=== PATIENT | female | born 1960 | race African-American/Black ===

== ENCOUNTER 2017-01-05 17:35 | Inpatient (IN) | payer MEDICAID ==
[~2017-01-05] VITALS: Ht 157.5 cm; Wt 88.9 kg
[~2017-01-05 17:35] MED LIST: INSU3INS6 SUBCUT; KEPP250 PO; LEVE1000 PO; LEVO500T2 PO; LISI-651 PO; METF500T4 PO; METR70GE2 VG; PANT40TA4 PO; TRIA1CAP6 PO; VENL150C52 PO; VENL150T3 PO
[2017-01-05] MEDS ORDERED: SODIUM CHLORIDE 0.9% 1,000 ML IV ONE (17:48)
[2017-01-05] MEDS ORDERED: LEVETIRACETAM 500 MG in SODIUM CHLORIDE 0.9% 100 ML IV STA (17:48)
[2017-01-05] MEDS ORDERED: LORAZEPAM 2MG/ML CPJ ONE (17:55)
[2017-01-05] MEDS ORDERED: LORAZEPAM 2MG/ML CPJ IV ONE ×2 (18:00)
[2017-01-05] MEDS ORDERED: LEVETIRACETAM 500MG PREMIX 100 ML IV NR (18:00)
[2017-01-05 18:18] LABS: CLARITY URINE CLEAR (CLEAR); COLOR URINE YELLOW (YELLOW); GLUCOSE URINE 3+ (NEGATIVE); KETONES URINE NEGATIVE (NEGATIVE); LEUKOCYTE ESTERASE URINE NEGATIVE (NEGATIVE); NITRITE URINE NEGATIVE (NEGATIVE); OCCULT BLOOD URINE NEGATIVE (NEGATIVE); PH URINE 5.5 (4.5-8.0); PROTEIN URINE NEGATIVE (NEGATIVE); SPECIFIC GRAVITY URINE 1.038 (1.005-1.030); UROBILINOGEN URINE 0.2 E.U./dL (0.2-1.0)
[2017-01-05 18:35] LABS: CHLORIDE 105 mEq/L (98-107)
[2017-01-05 18:36] LABS: INR 1.1; PARTIAL THROMBOPLASTIN TIME 23.5 sec (23.4-31.0); PROTHROMBIN TIME 11.1 sec (9.4-11.6)
[2017-01-05 18:40] LABS: BASOPHILS % 0.6 % (0.0-2.0); EOSINOPHILS % 0.1 % (0.0-5.0); HEMATOCRIT. 40.6 % (36.0-48.0); HEMOGLOBIN. 13.5 g/dL (12.0-16.0); LYMPHOCYTES % 37.4 % (20.0-50.0); MEAN CORPUSCULAR HEMOGLOBIN 30.6 pg (28.0-32.0); MEAN CORPUSCULAR VOLUME 91.9 fL (81.0-99.0); MEAN PLATELET VOLUME 12.7 fl (7.4-10.4); MONOCYTES % 12.3 % (2.0-8.0); NEUTROPHILS % 49.6 % (40.0-76.0); PLATELET 176 x1000/uL (130-400); RED BLOOD CELL COUNT 4.42 mill/uL (4.2-5.4); RED CELL DISTRIBUTION WIDTH 12.8 % (11.6-14.6)
[2017-01-05 18:43] LABS: CARBON DIOXIDE 23 mEq/L (21-32); CREATINE KINASE 47 IU/L (26-192)
[2017-01-05] MEDS ORDERED: INSULIN REGULAR (HUMULIN R) 300UNITS/3ML IV ONE (19:30)
[2017-01-05] MEDS ORDERED: MAGNESIUM 1 G PREMIX 100 ML IV ONE (19:30)
[2017-01-05] MEDS ORDERED: CLONIDINE 0.1MG TABLET PO PRN (20:15)
[2017-01-05] MEDS ORDERED: ACETAMINOPHEN 325MG TABLET PO PRN (20:15)
[2017-01-05] MEDS ORDERED: ENOXAPARIN 40MG/0.4ML SYR SUBCUT SCH (20:15)
[2017-01-05] MEDS ORDERED: IPRATROPIUM/ALBUTEROL 0.5-3(2.5)MG/3ML NEB INH PRN (20:15)
[2017-01-05] MEDS ORDERED: MAGNESIUM/ALUMINUM HYDROXIDE/SIMETHICONE 30ML UDC PO PRN (20:15)
[2017-01-05] MEDS ORDERED: ONDANSETRON HCL 4MG/2ML VIAL IV PRN (20:15)
[2017-01-05 23:00] VITALS: BP 132/72
[2017-01-05] MEDS ORDERED: DEXTROSE 50% WATER 50ML SYRINGE IV PRN (23:30)
[2017-01-05] MEDS: LORAZEPAM 2MG/ML CPJ IV PRN (23:55)
[2017-01-06] VITALS (10 sets, daily range): BP systolic 105–147; BP diastolic 47–84
[2017-01-06] MEDS ORDERED: LEVETIRACETAM 500 MG in SODIUM CHLORIDE 0.9% 100 ML IV SCH ×2
[2017-01-06 00:07] LABS: CREATINE KINASE 42 IU/L (26-192); CREATINE KINASE MB FRACTION < 0.5 ng/mL (0.5-3.6); TROPONIN I < 0.02 ng/mL (0.00-0.04)
[2017-01-06 00:10] LABS: CARBON DIOXIDE 27 mEq/L (21-32); CHLORIDE 107 mEq/L (98-107)
[2017-01-06] MEDS: SODIUM CHLORIDE 0.9% 1,000 ML IV SCH ×3 (00:21→18:05)
[2017-01-06] MEDS: INSULIN DETEMIR UD 100 UNITS/ML SYR SUBCUT SCH ×3 (00:22→23:35)
[2017-01-06 06:42] LABS: HEMATOCRIT. 41.6 % (36.0-48.0); HEMOGLOBIN. 14.1 g/dL (12.0-16.0); MEAN CORPUSCULAR HEMOGLOBIN 31.1 pg (28.0-32.0); MEAN CORPUSCULAR VOLUME 92.1 fL (81.0-99.0); MEAN PLATELET VOLUME 11.9 fl (7.4-10.4); PLATELET 158 x1000/uL (130-400); RED BLOOD CELL COUNT 4.51 mill/uL (4.2-5.4)
[2017-01-06 07:12] LABS: CREATINE KINASE 37 IU/L (26-192); CREATINE KINASE MB FRACTION 0.8 ng/mL (0.5-3.6); TROPONIN I < 0.02 ng/mL (0.00-0.04)
[2017-01-06] MEDS: BLOOD SUGAR DIAGNOSTIC STRIP TEST SCH ×4 (07:37→21:23)
[2017-01-06] MEDS: VENLAFAXINE HCL 37.5MG SR CAPSULE 24HR PO SCH (08:52)
[2017-01-06] MEDS: METFORMIN HCL 500MG TABLET PO SCH (08:52)
[2017-01-06] MEDS: PANTOPRAZOLE 40MG DR TABLET PO SCH (08:52)
[2017-01-06] MEDS: LISINOPRIL 10MG TABLET PO SCH (08:53)
[2017-01-06] MEDS: ENOXAPARIN 30MG/0.3ML SYR SUBCUT SCH ×2 (08:53→21:21)
[2017-01-06] MEDS: INSULIN LISPRO 100 UNITS/ML SUBCUT SCH ×4 (08:54→21:26)
[2017-01-06] MEDS ORDERED: LEVETIRACETAM 500MG PREMIX 100 ML IV SCH (09:00)
[2017-01-06 17:17] LABS: ATYPICAL LYMPHOCYTES 4; PLATELET ESTIMATE NORMAL
[2017-01-06] MEDS: ATORVASTATIN CALCIUM 10MG TABLET PO SCH (21:21)
[2017-01-06] MEDS: LEVETIRACETAM 500MG TABLET PO SCH (21:23)
[2017-01-07] VITALS (12 sets, daily range): BP systolic 109–148; BP diastolic 39–77
[2017-01-07] MEDS: SODIUM CHLORIDE 0.9% 1,000 ML IV SCH ×3 (03:55→22:52)
[2017-01-07] MEDS: PANTOPRAZOLE 40MG DR TABLET PO SCH (06:33)
[2017-01-07 06:46] LABS: *AMPHETAMINES SCREEN URINE NEGATIVE (NEGATIVE); *BARBITURATES SCREEN URINE NEGATIVE (NEGATIVE); *BENZODIAZEPINES SCREEN URINE PRESUMTIVE POSITIVE (NEGATIVE); *COCAINE SCREEN URINE NEGATIVE (NEGATIVE); CANNABINOID URINE SCREEN NEGATIVE (NEGATIVE); METHADONE URINE SCREEN NEGATIVE (NEGATIVE); OPIATES URINE SCREEN NEGATIVE (NEGATIVE); PHENCYCLIDINE URINE SCREEN NEGATIVE (NEGATIVE)
[2017-01-07 06:54] LABS: BASOPHILS % 0.3 % (0.0-2.0); EOSINOPHILS % 0.2 % (0.0-5.0); HEMATOCRIT. 39.4 % (36.0-48.0); HEMOGLOBIN. 13.7 g/dL (12.0-16.0); LYMPHOCYTES % 38.3 % (20.0-50.0); MEAN CORPUSCULAR HEMOGLOBIN 31.5 pg (28.0-32.0); MEAN CORPUSCULAR VOLUME 90.8 fL (81.0-99.0); MEAN PLATELET VOLUME 12.3 fl (7.4-10.4); MONOCYTES % 13.6 % (2.0-8.0); NEUTROPHILS % 47.6 % (40.0-76.0); PLATELET 178 x1000/uL (130-400); RED BLOOD CELL COUNT 4.34 mill/uL (4.2-5.4); RED CELL DISTRIBUTION WIDTH 12.8 % (11.6-14.6)
[2017-01-07 07:17] LABS: CARBON DIOXIDE 25 mEq/L (21-32); CHLORIDE 108 mEq/L (98-107)
[2017-01-07] MEDS: BLOOD SUGAR DIAGNOSTIC STRIP TEST SCH ×4 (07:30→21:31)
[2017-01-07] MEDS: LEVETIRACETAM 500MG TABLET PO SCH ×2 (09:50→21:19)
[2017-01-07] MEDS: VENLAFAXINE HCL 37.5MG SR CAPSULE 24HR PO SCH (09:51)
[2017-01-07] MEDS: METFORMIN HCL 500MG TABLET PO SCH (09:52)
[2017-01-07] MEDS: ENOXAPARIN 30MG/0.3ML SYR SUBCUT SCH ×2 (09:52→21:18)
[2017-01-07] MEDS: LISINOPRIL 10MG TABLET PO SCH (09:52)
[2017-01-07] MEDS: INSULIN DETEMIR UD 100 UNITS/ML SYR SUBCUT SCH ×2 (09:57→21:41)
[2017-01-07] MEDS: INSULIN LISPRO 100 UNITS/ML SUBCUT SCH ×4 (09:58→21:40)
[2017-01-07] MEDS ORDERED: ATOR10TA PO (12:52)
[2017-01-07] MEDS ORDERED: KEPP500 PO (12:52)
[2017-01-07] MEDS ORDERED: LEVVL SUBCUT (12:52)
[2017-01-07] MEDS ORDERED: POTASSIUM CHLORIDE 20MEQ TABLET SR PO NR (13:00)
[2017-01-07] MEDS: LORAZEPAM 2MG/ML CPJ IV PRN ×2 (15:22→21:19)
[2017-01-07] MEDS: ATORVASTATIN CALCIUM 10MG TABLET PO SCH (21:19)
[2017-01-08] VITALS (10 sets, daily range): BP systolic 92–145; BP diastolic 55–93
[2017-01-08] MEDS: BLOOD SUGAR DIAGNOSTIC STRIP TEST SCH ×2 (07:30→12:48)
[2017-01-08] MEDS: INSULIN LISPRO 100 UNITS/ML SUBCUT SCH ×2 (09:22→13:06)
[2017-01-08] MEDS: ENOXAPARIN 30MG/0.3ML SYR SUBCUT SCH (09:24)
[2017-01-08] MEDS: LEVETIRACETAM 500MG TABLET PO SCH (09:24)
[2017-01-08] MEDS: METFORMIN HCL 500MG TABLET PO SCH (09:25)
[2017-01-08] MEDS: VENLAFAXINE HCL 37.5MG SR CAPSULE 24HR PO SCH (09:25)
[2017-01-08] MEDS: LISINOPRIL 10MG TABLET PO SCH (09:25)
[2017-01-08] MEDS: SODIUM CHLORIDE 0.9% 1,000 ML IV SCH (09:26)
[2017-01-08] MEDS: PANTOPRAZOLE 40MG DR TABLET PO SCH (09:26)
[2017-01-08] MEDS: INSULIN DETEMIR UD 100 UNITS/ML SYR SUBCUT SCH (11:20)
[2017-01-08] MEDS: LORAZEPAM 2MG/ML CPJ IV PRN (16:00)
== END 2017-01-08 17:50 | disposition home or self-care (01) | DRG 53 ==
LOC: ER 17:35 → EDBEDREQ 17:56 → EDBEDREQSVC 17:56 → 5EST 18:50 → EDBEDREQTM 18:52 → EDBEDREQ 18:52 → ENRESERV 18:58
PROVIDERS: ADMIT Internal Medicine; ATTEND Internal Medicine
DX: G40.401 Other generalized epilepsy and epileptic syndromes, not intractable, with status epilepticus (principal); J96.00 Acute respiratory failure, unspecified whether with hypoxia or hypercapnia; E13.00 Other specified diabetes mellitus with hyperosmolarity without nonketotic hyperglycemic-hyperosmolar coma (NKHHC); E11.65 Type 2 diabetes mellitus with hyperglycemia; I10 Essential (primary) hypertension; E78.5 Hyperlipidemia, unspecified; F17.200 Nicotine dependence, unspecified, uncomplicated; Z71.6 Tobacco abuse counseling; Z59.0 Homelessness; Z88.0 Allergy status to penicillin; Z88.8 Allergy status to other drugs, medicaments and biological substances; Z88.6 Allergy status to analgesic agent; Z91.012 Allergy to eggs; Z79.899 Other long term (current) drug therapy; Z79.4 Long term (current) use of insulin; Z91.19 Patient's noncompliance with other medical treatment and regimen
CPT/HCPCS: 36415; 70450; 70551; 80048; 80053; 80061; 80305; 81001; 82550; 82553; 82962; 83690; 83735; 84443; 84484; 85025; 85610; 85730; 93005; 93970; 96361; 96374; 99291; G0482; J1650; J1815; J1953; J2060; J3475; J7030; J7050

== ENCOUNTER 2017-10-03 08:43 | Emergency (ER) | payer MEDICARE, MEDICAID ==
[~2017-10-03] VITALS: Ht 162.6 cm; Wt 80.0 kg
[~2017-10-03 08:43] MED LIST changes: +ATOR10TA PO; -INSU3INS6 SUBCUT; -KEPP250 PO; +KEPP500 PO; -LEVE1000 PO; -LEVO500T2 PO; +LEVVL SUBCUT; -METF500T4 PO; +METF500T6 PO; -METR70GE2 VG; -PANT40TA4 PO; -TRIA1CAP6 PO; -VENL150T3 PO
[2017-10-03] MEDS ORDERED: MORPHINE SULFATE 4 MG/ML CPJ (NOT FOR IM USE) IV STA (09:36)
[2017-10-03] MEDS ORDERED: ONDANSETRON HCL 4MG/2ML VIAL IV STA (09:36)
[2017-10-03 09:55] LABS: HEMATOCRIT. 43.4 % (36.0-48.0); HEMOGLOBIN. 14.6 g/dL (12.0-16.0); MEAN CORPUSCULAR HEMOGLOBIN 30.9 pg (28.0-32.0); MEAN CORPUSCULAR VOLUME 91.6 fL (81.0-99.0); MEAN PLATELET VOLUME 11.5 fl (7.4-10.4); PLATELET 221 x1000/uL (130-400); RED BLOOD CELL COUNT 4.73 mill/uL (4.2-5.4); RED CELL DISTRIBUTION WIDTH 12.4 % (11.6-14.6)
[2017-10-03 10:01] LABS: CHLORIDE 103 mEq/L (98-107)
[2017-10-03 10:04] LABS: ETHANOL BLOOD < 10 mg/dL
[2017-10-03 10:35] LABS: NUCLEATED RED BLOOD CELLS 1 /100 WBC
[2017-10-03 10:36] LABS: PLATELET ESTIMATE NORMAL
[2017-10-03 12:25] LABS: CLARITY URINE CLEAR (CLEAR); COLOR URINE YELLOW (YELLOW); KETONES URINE 1+ (NEGATIVE); LEUKOCYTE ESTERASE URINE NEGATIVE (NEGATIVE); NITRITE URINE NEGATIVE (NEGATIVE); OCCULT BLOOD URINE NEGATIVE (NEGATIVE); PROTEIN URINE NEGATIVE (NEGATIVE); SPECIFIC GRAVITY URINE 1.033 (1.005-1.030)
[2017-10-03 13:00] LABS: *AMPHETAMINES SCREEN URINE NEGATIVE (NEGATIVE); *BARBITURATES SCREEN URINE NEGATIVE (NEGATIVE); *BENZODIAZEPINES SCREEN URINE NEGATIVE (NEGATIVE); *COCAINE SCREEN URINE NEGATIVE (NEGATIVE); METHADONE URINE SCREEN NEGATIVE (NEGATIVE); OPIATES URINE SCREEN PRESUMTIVE POSITIVE (NEGATIVE)
[2017-10-03 13:01] LABS: CANNABINOID URINE SCREEN PRESUMTIVE POSITIVE (NEGATIVE); PHENCYCLIDINE URINE SCREEN NEGATIVE (NEGATIVE)
[2017-10-03 14:01] VITALS: BP 116/69
== END 2017-10-03 14:14 | disposition home or self-care (01) ==
LOC: ER 08:44
DX: R51 Headache (principal); G40.909 Epilepsy, unspecified, not intractable, without status epilepticus; E11.9 Type 2 diabetes mellitus without complications; Z59.0 Homelessness; Z88.5 Allergy status to narcotic agent; Z88.0 Allergy status to penicillin; Z88.6 Allergy status to analgesic agent; Z91.012 Allergy to eggs
CPT/HCPCS: 36415; 70450; 80053; 80305; 81003; 85025; 96374; 96375; 99285; G0482; J2270; J2405

== ENCOUNTER 2018-01-08 07:54 | Inpatient (IN) | payer MEDICARE, MEDICAID ==
[~2018-01-08] VITALS: Ht 157.5 cm; Wt 80.7 kg
[~2018-01-08 07:54] MED LIST changes: +METF-414 PO; -METF500T6 PO
[2018-01-08] MEDS ORDERED: SODIUM CHLORIDE 0.9% 1,000 ML IV ONE ×2 (08:25→10:45)
[2018-01-08] MEDS ORDERED: ONDANSETRON HCL 4MG/2ML INJ IV ONE (08:30)
[2018-01-08] MEDS ORDERED: MORPHINE SULFATE 4 MG/ML CPJ (NOT FOR IM USE) IV ONE (08:30)
[2018-01-08] MEDS ORDERED: LEVETIRACETAM 500MG PREMIX 100 ML IV ONE (08:45)
[2018-01-08 08:52] LABS: BASOPHILS % 1.1 % (0.0-2.0); EOSINOPHILS % 0.1 % (0.0-5.0); HEMOGLOBIN. 15.3 g/dL (12.0-16.0); LYMPHOCYTES % 27.2 % (20.0-50.0); MEAN CORPUSCULAR HEMOGLOBIN 31.3 pg (28.0-32.0); MEAN CORPUSCULAR VOLUME 91.8 fL (81.0-99.0); MEAN PLATELET VOLUME 11.6 fl (7.4-10.4); MONOCYTES % 10.3 % (2.0-8.0); NEUTROPHILS % 61.3 % (40.0-76.0); PLATELET 221 x1000/uL (130-400); RED CELL DISTRIBUTION WIDTH 12.3 % (11.6-14.6)
[2018-01-08 09:18] LABS: CHLORIDE 99 mEq/L (98-107); ETHANOL BLOOD < 10 mg/dL
[2018-01-08 09:43] LABS: CLARITY URINE CLEAR (CLEAR); COLOR URINE YELLOW (YELLOW); KETONES URINE 1+ (NEGATIVE); LEUKOCYTE ESTERASE URINE NEGATIVE (NEGATIVE); NITRITE URINE NEGATIVE (NEGATIVE); OCCULT BLOOD URINE NEGATIVE (NEGATIVE); PROTEIN URINE NEGATIVE (NEGATIVE); SPECIFIC GRAVITY URINE 1.039 (1.005-1.030); UROBILINOGEN URINE 0.2 E.U./dL (0.2-1.0)
[2018-01-08 10:15] LABS: PARTIAL THROMBOPLASTIN TIME 24.5 sec (23.4-31.0); PROTHROMBIN TIME 10.5 sec (9.1-11.1)
[2018-01-08 10:17] LABS: *AMPHETAMINES SCREEN URINE NEGATIVE (NEGATIVE); CANNABINOID URINE SCREEN PRESUMTIVE POSITIVE (NEGATIVE)
[2018-01-08 10:18] LABS: *BARBITURATES SCREEN URINE NEGATIVE (NEGATIVE); *BENZODIAZEPINES SCREEN URINE NEGATIVE (NEGATIVE); *COCAINE SCREEN URINE NEGATIVE (NEGATIVE); METHADONE URINE SCREEN NEGATIVE (NEGATIVE); OPIATES URINE SCREEN NEGATIVE (NEGATIVE); PHENCYCLIDINE URINE SCREEN NEGATIVE (NEGATIVE)
[2018-01-08] MEDS ORDERED: INSULIN REGULAR (HUMULIN R) 300UNITS/3ML IV ONE (10:45)
[2018-01-08 16:00] VITALS: BP 115/61
[2018-01-08 16:52] VITALS: BP 115/61
[2018-01-08] MEDS ORDERED: DOCU-138 MT (17:20)
[2018-01-08] MEDS ORDERED: GLIP10TA10 MT (17:20)
[2018-01-08] MEDS ORDERED: SITA100T11 MT (17:20)
[2018-01-08] MEDS ORDERED: OMEP20CA10 MT (17:20)
[2018-01-08] MEDS ORDERED: ACETAMINOPHEN 650MG/20.3ML UDC GT PRN (19:00)
[2018-01-08] MEDS ORDERED: CLONIDINE 0.1MG TABLET PO PRN (19:00)
[2018-01-08] MEDS ORDERED: GUAIFENESIN 200MG/10ML SUGAR FREE UDC PO PRN (19:00)
[2018-01-08] MEDS ORDERED: MAGNESIUM/ALUMINUM HYDROXIDE/SIMETHICONE 30ML UDC PO PRN (19:00)
[2018-01-08] MEDS ORDERED: ONDANSETRON HCL 4MG/2ML INJ IV PRN (19:00)
[2018-01-08] MEDS ORDERED: ACETAMINOPHEN 650MG SUPP PR PRN (19:00)
[2018-01-08] MEDS ORDERED: DOCUSATE SODIUM 100MG CAPSULE PO PRN (19:00)
[2018-01-08] MEDS ORDERED: IPRATROPIUM/ALBUTEROL 0.5-3(2.5)MG/3ML NEB INH PRN (19:00)
[2018-01-08] MEDS ORDERED: ACETAMINOPHEN 325MG TABLET PO PRN (19:00)
[2018-01-08] MEDS ORDERED: HYDROCODONE/ACETAMINOPHEN 5/325MG TABLET PO PRN (19:00)
[2018-01-08] MEDS ORDERED: NA PHOS,M-B/NA PHOS,DI-BA ENEMA 118ML PR PRN (19:00)
[2018-01-08] MEDS ORDERED: DEXTROSE 50% WATER 50ML SYRINGE IV PRN (19:30)
[2018-01-08 20:00] VITALS: BP 119/60
[2018-01-08] MEDS: BLOOD SUGAR DIAGNOSTIC STRIP TEST SCH (21:32)
[2018-01-08] MEDS: INSULIN LISPRO 100 UNITS/ML SUBCUT SCH (21:40)
[2018-01-08] MEDS: HYDROCODONE/ACETAMINOPHEN 10/325MG TABLET PO PRN (21:43)
[2018-01-08] MEDS: ENOXAPARIN 40MG/0.4ML SYR SUBCUT SCH (21:43)
[2018-01-08] MEDS: LEVETIRACETAM 500MG TABLET PO SCH (21:44)
[2018-01-08] MEDS: LORAZEPAM 2MG/ML CPJ IV PRN (21:44)
[2018-01-08] MEDS: SODIUM CHLORIDE 0.9% INJ 3ML FLUSH IVF SCH (21:56)
[2018-01-08] MEDS: VENLAFAXINE HCL 75MG TABLET PO SCH (22:51)
[2018-01-08] MEDS: OMEPRAZOLE 20MG CAPSULE EXTENDED RELEASE PO SCH (22:52)
[2018-01-08] MEDS: DOCUSATE SODIUM 100MG CAPSULE PO SCH (22:52)
[2018-01-08] MEDS: METFORMIN HCL 500MG TABLET PO SCH (22:52)
[2018-01-08] MEDS: LISINOPRIL 10MG TABLET PO SCH (22:52)
[2018-01-08] MEDS: INSULIN GLARGINE UD 100 UNITS/ML SYR SUBCUT SCH (22:53)
[2018-01-08 23:52] LABS: CREATINE KINASE 27 IU/L (26-192); CREATINE KINASE MB FRACTION < 1.0 ng/mL (0.5-3.6)
[2018-01-09] VITALS: BP 102/39
[2018-01-09 00:20] VITALS: BP 113/60
[2018-01-09] MEDS: SODIUM CHLORIDE 0.9% INJ 3ML FLUSH IVF SCH ×3 (06:37→21:43)
[2018-01-09] MEDS: INSULIN LISPRO 100 UNITS/ML SUBCUT SCH ×4 (06:56→21:43)
[2018-01-09] MEDS: BLOOD SUGAR DIAGNOSTIC STRIP TEST SCH ×4 (06:56→21:32)
[2018-01-09 07:52] LABS: BASOPHILS % 0.5 % (0.0-2.0); EOSINOPHILS % 0.1 % (0.0-5.0); HEMATOCRIT. 43.7 % (36.0-48.0); HEMOGLOBIN. 14.5 g/dL (12.0-16.0); LYMPHOCYTES % 33.8 % (20.0-50.0); MEAN CORPUSCULAR HEMOGLOBIN 30.6 pg (28.0-32.0); MEAN CORPUSCULAR VOLUME 92.2 fL (81.0-99.0); MONOCYTES % 9.9 % (2.0-8.0); NEUTROPHILS % 55.7 % (40.0-76.0); PLATELET 220 x1000/uL (130-400); RED BLOOD CELL COUNT 4.74 mill/uL (4.2-5.4); RED CELL DISTRIBUTION WIDTH 12.2 % (11.6-14.6)
[2018-01-09 08:00] VITALS: BP 108/52
[2018-01-09] MEDS: GLIPIZIDE 10MG TABLET PO SCH ×2 (08:50→17:13)
[2018-01-09] MEDS: LEVETIRACETAM 500MG TABLET PO SCH ×3 (08:50→21:42)
[2018-01-09] MEDS: DOCUSATE SODIUM 100MG CAPSULE PO SCH ×2 (08:50→17:13)
[2018-01-09] MEDS: METFORMIN HCL 500MG TABLET PO SCH (08:51)
[2018-01-09] MEDS: OMEPRAZOLE 20MG CAPSULE EXTENDED RELEASE PO SCH (08:51)
[2018-01-09] MEDS: VENLAFAXINE HCL 75MG TABLET PO SCH (08:51)
[2018-01-09] MEDS: LISINOPRIL 10MG TABLET PO SCH (08:52)
[2018-01-09 09:50] LABS: CHLORIDE 105 mEq/L (98-107)
[2018-01-09] MEDS: INSULIN GLARGINE UD 100 UNITS/ML SYR SUBCUT SCH (10:03)
[2018-01-09 10:11] LABS: CREATINE KINASE 26 IU/L (26-192); CREATINE KINASE MB FRACTION < 1.0 ng/mL (0.5-3.6); HDL CHOLESTEROL 73 mg/dL (40-59); LDL CHOLESTEROL 116 mg/dL (5-100)
[2018-01-09] MEDS: HYDROCODONE/ACETAMINOPHEN 10/325MG TABLET PO PRN (11:08)
[2018-01-09 12:00] VITALS: BP 108/68
[2018-01-09] MEDS: LORAZEPAM 2MG/ML CPJ IV PRN (14:41)
[2018-01-09 16:00] VITALS: BP 107/57
[2018-01-09] MEDS: LAMOTRIGINE 25MG TABLET PO SCH (16:44)
[2018-01-09 20:00] VITALS: BP 121/64
[2018-01-09] MEDS: LINAGLIPTIN 5MG TABLET PO SCH (21:42)
[2018-01-09] MEDS: ATORVASTATIN CALCIUM 10MG TABLET PO SCH (21:42)
[2018-01-09] MEDS: ENOXAPARIN 40MG/0.4ML SYR SUBCUT SCH (21:43)
[2018-01-10] VITALS: BP 106/63
[2018-01-10] MEDS: INSULIN GLARGINE UD 100 UNITS/ML SYR SUBCUT SCH ×3 (00:04→20:51)
[2018-01-10 04:00] VITALS: BP 105/62
[2018-01-10] MEDS: SODIUM CHLORIDE 0.9% INJ 3ML FLUSH IVF SCH ×3 (06:26→20:52)
[2018-01-10] MEDS: BLOOD SUGAR DIAGNOSTIC STRIP TEST SCH ×4 (06:27→20:52)
[2018-01-10] MEDS: INSULIN LISPRO 100 UNITS/ML SUBCUT SCH ×4 (07:49→20:51)
[2018-01-10 08:00] VITALS: BP 102/58
[2018-01-10] MEDS: LISINOPRIL 10MG TABLET PO SCH (09:00)
[2018-01-10] MEDS: LEVETIRACETAM 500MG TABLET PO SCH ×2 (09:13→20:52)
[2018-01-10] MEDS: GLIPIZIDE 10MG TABLET PO SCH ×2 (09:13→17:30)
[2018-01-10] MEDS: VENLAFAXINE HCL 75MG TABLET PO SCH (09:14)
[2018-01-10] MEDS: LINAGLIPTIN 5MG TABLET PO SCH (09:14)
[2018-01-10] MEDS: LAMOTRIGINE 25MG TABLET PO SCH (09:14)
[2018-01-10] MEDS: FAMOTIDINE 20MG TABLET PO SCH ×2 (09:14→17:30)
[2018-01-10] MEDS: DOCUSATE SODIUM 100MG CAPSULE PO SCH ×2 (09:14→17:30)
[2018-01-10] MEDS: METFORMIN HCL 500MG TABLET PO SCH (09:18)
[2018-01-10 12:00] VITALS: BP 118/76
[2018-01-10 16:00] VITALS: BP 120/64
[2018-01-10] MEDS: HYDROCODONE/ACETAMINOPHEN 10/325MG TABLET PO PRN (17:30)
[2018-01-10 20:00] VITALS: BP 130/66
[2018-01-10] MEDS: ATORVASTATIN CALCIUM 10MG TABLET PO SCH (20:52)
[2018-01-10] MEDS: ENOXAPARIN 40MG/0.4ML SYR SUBCUT SCH (20:53)
[2018-01-11] VITALS: BP 96/50
[2018-01-11 04:00] VITALS: BP 100/61
[2018-01-11] MEDS: SODIUM CHLORIDE 0.9% INJ 3ML FLUSH IVF SCH ×3 (06:00→22:00)
[2018-01-11] MEDS: BLOOD SUGAR DIAGNOSTIC STRIP TEST SCH ×4 (07:00→21:00)
[2018-01-11 08:10] VITALS: BP 99/59
[2018-01-11] MEDS ORDERED: GADOBENATE DIMEGLUMINE 529 MG/ML 10ML IV ONE (08:57)
[2018-01-11] MEDS: LAMOTRIGINE 25MG TABLET PO SCH (09:36)
[2018-01-11] MEDS: METFORMIN HCL 500MG TABLET PO SCH (09:36)
[2018-01-11] MEDS: LEVETIRACETAM 500MG TABLET PO SCH ×2 (09:36→20:46)
[2018-01-11] MEDS: LISINOPRIL 10MG TABLET PO SCH (09:36)
[2018-01-11] MEDS: VENLAFAXINE HCL 75MG TABLET PO SCH (09:37)
[2018-01-11] MEDS: GLIPIZIDE 10MG TABLET PO SCH ×2 (09:37→17:43)
[2018-01-11] MEDS: FAMOTIDINE 20MG TABLET PO SCH ×2 (09:37→17:43)
[2018-01-11] MEDS: DOCUSATE SODIUM 100MG CAPSULE PO SCH ×2 (09:37→17:43)
[2018-01-11] MEDS: LINAGLIPTIN 5MG TABLET PO SCH (09:37)
[2018-01-11] MEDS: INSULIN LISPRO 100 UNITS/ML SUBCUT SCH ×4 (09:47→20:45)
[2018-01-11] MEDS: INSULIN GLARGINE UD 100 UNITS/ML SYR SUBCUT SCH ×2 (09:48→23:06)
[2018-01-11] MEDS ORDERED: LAM25 MT (11:58)
[2018-01-11 12:00] VITALS: BP 123/75
[2018-01-11] MEDS: HYDROCODONE/ACETAMINOPHEN 10/325MG TABLET PO PRN ×2 (14:18→23:17)
[2018-01-11 16:00] VITALS: BP 111/63
[2018-01-11 20:00] VITALS: BP 138/74
[2018-01-11] MEDS: ENOXAPARIN 40MG/0.4ML SYR SUBCUT SCH (20:45)
[2018-01-11] MEDS: ATORVASTATIN CALCIUM 10MG TABLET PO SCH (20:46)
[2018-01-12] VITALS: BP 122/78
[2018-01-12 04:00] VITALS: BP 110/78
[2018-01-12] MEDS: BLOOD SUGAR DIAGNOSTIC STRIP TEST SCH ×2 (06:41→12:40)
[2018-01-12] MEDS: SODIUM CHLORIDE 0.9% INJ 3ML FLUSH IVF SCH (06:43)
[2018-01-12 08:00] VITALS: BP 117/68
[2018-01-12] MEDS: LISINOPRIL 10MG TABLET PO SCH (09:00)
[2018-01-12] MEDS: DOCUSATE SODIUM 100MG CAPSULE PO SCH (09:00)
[2018-01-12] MEDS: HYDROCODONE/ACETAMINOPHEN 10/325MG TABLET PO PRN (09:02)
[2018-01-12] MEDS: LAMOTRIGINE 25MG TABLET PO SCH (09:02)
[2018-01-12] MEDS: VENLAFAXINE HCL 75MG TABLET PO SCH (09:03)
[2018-01-12] MEDS: LINAGLIPTIN 5MG TABLET PO SCH (09:03)
[2018-01-12] MEDS: FAMOTIDINE 20MG TABLET PO SCH (09:03)
[2018-01-12] MEDS: LEVETIRACETAM 500MG TABLET PO SCH (09:04)
[2018-01-12] MEDS: INSULIN LISPRO 100 UNITS/ML SUBCUT SCH ×2 (09:04→13:53)
[2018-01-12] MEDS: GLIPIZIDE 10MG TABLET PO SCH (09:05)
[2018-01-12] MEDS: METFORMIN HCL 500MG TABLET PO SCH ×2 (09:05→10:05)
[2018-01-12] MEDS: INSULIN GLARGINE UD 100 UNITS/ML SYR SUBCUT SCH (10:33)
[2018-01-12 12:00] VITALS: BP 126/86
[2018-01-12 13:00] VITALS: BP 126/66
== END 2018-01-12 15:07 | disposition home or self-care (01) | DRG 100 ==
LOC: ER 07:54 → 7WST 10:31 → EDBEDREQTM 10:40 → EDBEDREQ 10:40 → ENRESERV 12:25 → CANRESERV 14:38
PROVIDERS: ADMIT Family Medicine; ATTEND Family Medicine
DX: G40.909 Epilepsy, unspecified, not intractable, without status epilepticus (principal); G93.41 Metabolic encephalopathy; E44.1 Mild protein-calorie malnutrition; E87.1 Hypo-osmolality and hyponatremia; G35 Multiple sclerosis; M79.7 Fibromyalgia; E11.65 Type 2 diabetes mellitus with hyperglycemia; F12.90 Cannabis use, unspecified, uncomplicated; I10 Essential (primary) hypertension; R29.6 Repeated falls; E66.9 Obesity, unspecified; M25.551 Pain in right hip; W19.XXXA Unspecified fall, initial encounter; Y93.89 Activity, other specified; Y92.89 Other specified places as the place of occurrence of the external cause; Y99.8 Other external cause status; Z59.0 Homelessness; Z68.30 Body mass index [BMI] 30.0-30.9, adult; Z88.6 Allergy status to analgesic agent; Z88.0 Allergy status to penicillin; Z88.5 Allergy status to narcotic agent; Z91.012 Allergy to eggs; Z91.81 History of falling; Z85.79 Personal history of other malignant neoplasms of lymphoid, hematopoietic and related tissues; Z79.899 Other long term (current) drug therapy; Z79.84 Long term (current) use of oral hypoglycemic drugs
CPT/HCPCS: 36415; 70553; 71045; 73502; 73552; 73700; 80061; 80305; 82550; 82553; 82962; 83880; 84484; 93005; 96361; 96365; 96375; 97116; 97162; 99291; A9577; G0482; J1650; J1815; J1953; J2060; J2270; J2405; J7030

== ENCOUNTER 2018-02-02 07:49 | Inpatient (IN) | payer OTHER, MEDICAID ==
[~2018-02-02] VITALS: Ht 157.5 cm; Wt 77.1 kg
[~2018-02-02 07:49] MED LIST changes: +DOCU-138 MT; +GLIP10TA10 MT; +LAM25 MT; +OMEP20CA10 MT; +SITA100T11 MT
[2018-02-02] MEDS ORDERED: SODIUM CHLORIDE 0.9% 1,000 ML IV ONE (10:21)
[2018-02-02] MEDS ORDERED: KETOROLAC 30MG/ML VIAL IV STA (10:21)
[2018-02-02 10:40] LABS: CLARITY URINE CLEAR (CLEAR); COLOR URINE YELLOW (YELLOW); KETONES URINE NEGATIVE (NEGATIVE); LEUKOCYTE ESTERASE URINE NEGATIVE (NEGATIVE); NITRITE URINE NEGATIVE (NEGATIVE); OCCULT BLOOD URINE NEGATIVE (NEGATIVE); PROTEIN URINE NEGATIVE (NEGATIVE); SPECIFIC GRAVITY URINE 1.024 (1.005-1.030); UROBILINOGEN URINE 0.2 E.U./dL (0.2-1.0)
[2018-02-02] MEDS ORDERED: LORAZEPAM 2MG/ML CPJ IV ONE (11:00)
[2018-02-02] MEDS ORDERED: LEVETIRACETAM 500MG PREMIX 100 ML IV ONE (11:00)
[2018-02-02 11:19] LABS: BASOPHILS % 1.5 % (0.0-2.0); EOSINOPHILS % 0.1 % (0.0-5.0); HEMATOCRIT. 36.3 % (36.0-48.0); HEMOGLOBIN. 12.2 g/dL (12.0-16.0); LYMPHOCYTES % 43.9 % (20.0-50.0); MEAN CORPUSCULAR HEMOGLOBIN 31.9 pg (28.0-32.0); MEAN CORPUSCULAR VOLUME 94.4 fL (81.0-99.0); MEAN PLATELET VOLUME 10.2 fl (7.4-10.4); MONOCYTES % 10.3 % (2.0-8.0); NEUTROPHILS % 44.2 % (40.0-76.0); PLATELET 269 x1000/uL (130-400); RED BLOOD CELL COUNT 3.84 mill/uL (4.2-5.4); RED CELL DISTRIBUTION WIDTH 12.8 % (11.6-14.6)
[2018-02-02 11:25] LABS: CHLORIDE 105 mEq/L (98-107)
[2018-02-02 11:28] LABS: INR 1.1; PROTHROMBIN TIME 10.8 sec (9.1-11.1)
[2018-02-02 11:35] LABS: CREATINE KINASE 38 IU/L (26-192)
[2018-02-02 11:38] LABS: CREATINE KINASE MB FRACTION < 1.0 ng/mL (0.5-3.6)
[2018-02-02] MEDS ORDERED: CLONIDINE 0.1MG TABLET PO PRN (13:45)
[2018-02-02] MEDS ORDERED: ACETAMINOPHEN 325MG TABLET PO PRN (13:45)
[2018-02-02] MEDS ORDERED: MAGNESIUM/ALUMINUM HYDROXIDE/SIMETHICONE 30ML UDC PO PRN (13:45)
[2018-02-02] MEDS ORDERED: ONDANSETRON HCL 4MG/2ML INJ IV PRN (13:45)
[2018-02-02] MEDS ORDERED: LORAZEPAM 2MG/ML CPJ IV PRN (13:45)
[2018-02-02] MEDS ORDERED: DEXTROSE 50% WATER 50ML SYRINGE IV PRN (13:45)
[2018-02-02] MEDS: SODIUM CHLORIDE 0.9% INJ 3ML FLUSH IVF SCH ×2 (14:00→22:15)
[2018-02-02 14:05] VITALS: BP 129/65
[2018-02-02 14:08] VITALS: BP 129/65
[2018-02-02] MEDS: GLIPIZIDE 5MG TABLET PO SCH (16:16)
[2018-02-02 16:25] VITALS: BP 119/71
[2018-02-02] MEDS: BLOOD SUGAR DIAGNOSTIC STRIP TEST SCH ×2 (17:40→21:00)
[2018-02-02] MEDS: VENLAFAXINE HCL 50MG TABLET PO SCH (17:47)
[2018-02-02] MEDS: LAMOTRIGINE 25MG TABLET PO SCH (17:47)
[2018-02-02] MEDS: INSULIN LISPRO 100 UNITS/ML SUBCUT SCH ×2 (18:41→22:15)
[2018-02-02 20:00] VITALS: BP 146/77
[2018-02-02] MEDS ORDERED: FAMOTIDINE 20MG TABLET PO SCH (21:00)
[2018-02-02] MEDS ORDERED: LEVETIRACETAM 750 MG in SODIUM CHLORIDE 0.9% 100 ML IV SCH (21:00)
[2018-02-02] MEDS: INSULIN GLARGINE UD 100 UNITS/ML SYR SUBCUT SCH (22:15)
[2018-02-03] VITALS: BP 110/66
[2018-02-03] MEDS ORDERED: MAGNESIUM HYDROXIDE 400MG/5ML 30ML UDC PO PRN
[2018-02-03] MEDS: LEVETIRACETAM 750 MG in SODIUM CHLORIDE 0.9% 100 ML IV SCH ×2 (00:54→09:11)
[2018-02-03 04:00] VITALS: BP 115/72
[2018-02-03] MEDS: BLOOD SUGAR DIAGNOSTIC STRIP TEST SCH ×2 (07:34→13:07)
[2018-02-03 08:00] VITALS: BP 123/69
[2018-02-03] MEDS: INSULIN LISPRO 100 UNITS/ML SUBCUT SCH ×2 (08:10→13:10)
[2018-02-03] MEDS ORDERED: DOCUSATE SODIUM 100MG CAPSULE PO SCH (09:00)
[2018-02-03] MEDS: LAMOTRIGINE 25MG TABLET PO SCH (09:11)
[2018-02-03] MEDS: GLIPIZIDE 5MG TABLET PO SCH (09:11)
[2018-02-03] MEDS: VENLAFAXINE HCL 50MG TABLET PO SCH (09:11)
[2018-02-03] MEDS: SODIUM CHLORIDE 0.9% INJ 3ML FLUSH IVF SCH ×2 (12:00→14:01)
[2018-02-03] MEDS: INSULIN GLARGINE UD 100 UNITS/ML SYR SUBCUT SCH (12:15)
[2018-02-03 12:50] VITALS: BP 135/72
[2018-02-03 16:38] VITALS: BP 128/69
== END 2018-02-03 17:10 | disposition home or self-care (01) | DRG 101 ==
LOC: ER 08:18 → 7WST 11:04 → EDBEDREQ 11:10 → EDBEDREQTM 11:10 → ENRESERV 12:14
PROVIDERS: ADMIT Internal Medicine; ATTEND Internal Medicine
DX: G40.909 Epilepsy, unspecified, not intractable, without status epilepticus (principal); G35 Multiple sclerosis; E11.9 Type 2 diabetes mellitus without complications; I10 Essential (primary) hypertension; Z82.49 Family history of ischemic heart disease and other diseases of the circulatory system; Z59.0 Homelessness; Z83.3 Family history of diabetes mellitus; Z88.5 Allergy status to narcotic agent; Z88.0 Allergy status to penicillin; Z88.6 Allergy status to analgesic agent; Z91.012 Allergy to eggs
CPT/HCPCS: 36415; 71045; 82550; 82553; 82962; 83735; 84484; 93005; 96365; 96375; 97162; 99291; J1815; J1885; J1953; J2060; J7030; J7050

== ENCOUNTER 2025-01-15 03:39 | Emergency (ER) | payer MEDICARE, MEDICAID ==
[~2025-01-15] VITALS: Ht 170.2 cm; Wt 78.0 kg
[~2025-01-15 03:39] MED LIST changes: +AMLO5TAB88 MT; +ASPI-1406 PO; -ATOR10TA PO; +ATOR20TA65 PO; +CYCL10TA21 PO; +EMPA25TA PO; +ERGO1250 PO; +GABA100C PO; -GLIP10TA10 MT; +GLIP10TA17 MT; +GLIP10TA17 PO; +HYDR-4009 PO; +KEPP500 MT; +LAMO100T65 MT; +LOSA25TA26 MT; +MAGN200T4 MT; -OMEP20CA10 MT; +OMEP20CA14 MT; +PANT40TA51 PO; +SERT-422 MT
[2025-01-15 03:48] VITALS: O2SAT 96
[2025-01-15] MEDS: ACETAMINOPHEN 325MG TABLET PO ONE (04:39)
[2025-01-15] MEDS: LIDOCAINE 5% PATCH TOP SCH (04:40)
[2025-01-15] MEDS: KETOROLAC 30MG/ML VIAL IM ONE (05:35)
[2025-01-15] MEDS ORDERED: METH-653 MT (05:48)
[2025-01-15] MEDS ORDERED: IBUP-1455 MT (05:48)
[2025-01-15] MEDS ORDERED: LIDO700A30 TP (05:48)
[2025-01-15 06:36] VITALS: BP 150/71; PULSE 81; RESP 14; TEMP 36.7; O2SAT 96
== END 2025-01-15 06:38 | disposition home or self-care (01) ==
LOC: ER 03:39
DX: S39.012A Strain of muscle, fascia and tendon of lower back, initial encounter (principal); I10 Essential (primary) hypertension; E11.9 Type 2 diabetes mellitus without complications; Z86.73 Personal history of transient ischemic attack (TIA), and cerebral infarction without residual deficits; Z79.899 Other long term (current) drug therapy; Z79.891 Long term (current) use of opiate analgesic; Z79.84 Long term (current) use of oral hypoglycemic drugs; Z79.82 Long term (current) use of aspirin; W19.XXXA Unspecified fall, initial encounter; Y93.89 Activity, other specified; Y92.89 Other specified places as the place of occurrence of the external cause; Y99.8 Other external cause status
CPT/HCPCS: 99285; 72131; 96372; J1885

== ENCOUNTER 2025-03-10 11:29 | Inpatient (IN) | payer BC, MEDICAID ==
[~2025-03-10] VITALS: Ht 157.5 cm; Wt 94.3 kg
[~2025-03-10 11:29] MED LIST changes: +IBUP-1455 MT; +LIDO700A30 TP; +METH-653 MT
[2025-03-10 11:31] VITALS: O2SAT 97
[2025-03-10] MEDS: LIDOCAINE 5% PATCH TOP SCH (13:31)
[2025-03-10] MEDS: ACETAMINOPHEN 500MG TABLET PO ONE (13:31)
[2025-03-10] MEDS: LEVETIRACETAM 500MG PREMIX 100 ML IV ONE ×2 (16:18→16:53)
[2025-03-10 17:12] LABS: BASOPHILS % 0.7 % (0.0-2.0); EOSINOPHILS % 0.0 % (0.0-5.0); HEMATOCRIT. 44.2 % (36.0-48.0); HEMOGLOBIN. 14.7 g/dL (12.0-16.0); LYMPHOCYTES % 40.6 % (20.0-50.0); MEAN PLATELET VOLUME 11.5 fl (7.4-10.4); MONOCYTES % 8.6 % (2.0-8.0); NEUTROPHILS % 50.1 % (40.0-76.0); PLATELET 235 x1000/uL (130-400); RED BLOOD CELL COUNT 4.74 mill/uL (4.2-5.4); RED CELL DISTRIBUTION WIDTH 12.7 % (11.6-14.6)
[2025-03-10 17:20] LABS: CREATININE 0.7 mg/dL (0.6-1.0); UREA NITROGEN BLOOD 9 mg/dL (9-23)
[2025-03-10 17:21] LABS: PROTEIN TOTAL 7.5 g/dL (6.0-8.3)
[2025-03-10 17:22] LABS: ASPARTATE AMINOTRANSFERASE 38 IU/L (<34); BILIRUBIN DIRECT 0.2 mg/dL (<=3.0); BILIRUBIN TOTAL 0.9 mg/dL (0.1-1.0)
[2025-03-10] MEDS: MAGNESIUM 1 G PREMIX 100 ML IV ONE (18:20)
[2025-03-10 19:20] VITALS: BP 142/69; PULSE 85; RESP 19; TEMP 36.1; TEMP 36.14; O2SAT 97
[2025-03-10] MEDS ORDERED: ONDANSETRON HCL 4MG/2ML INJ IV PRN (19:45)
[2025-03-10] MEDS ORDERED: ACETAMINOPHEN 325MG TABLET PO PRN (19:45)
[2025-03-10] MEDS ORDERED: IPRATROPIUM/ALBUTEROL 0.5-3(2.5)MG/3ML NEB HHN PRN (19:45)
[2025-03-10] MEDS ORDERED: GUAIFENESIN 200MG/10ML SUGAR FREE UDC PO PRN (19:45)
[2025-03-10] MEDS ORDERED: MAGNESIUM/ALUMINUM HYDROXIDE/SIMETHICONE 30ML UDC PO PRN (19:45)
[2025-03-10] MEDS ORDERED: CLONIDINE 0.1MG TABLET PO PRN (19:45)
[2025-03-10] MEDS ORDERED: DOCUSATE SODIUM 100MG CAPSULE PO PRN (19:45)
[2025-03-10 20:00] VITALS: BP 142/69; PULSE 85; RESP 19; TEMP 36.1; O2SAT 97
[2025-03-10] MEDS ORDERED: NALOXONE HCL 0.4MG/ML VIAL IV PRN (20:00)
[2025-03-10] MEDS ORDERED: LORAZEPAM 2MG/ML UD SYRINGE IV PRN (20:15)
[2025-03-10] MEDS ORDERED: DEXTROSE 50% WATER 50ML SYRINGE IV PRN (20:15)
[2025-03-10] MEDS ORDERED: KETOROLAC 15MG/ML VIAL IV PRN (20:15)
[2025-03-10] MEDS ORDERED: KCL 10MEQ/50ML PREMIX 50 ML IV ONE (20:30)
[2025-03-10] MEDS ORDERED: LEVETIRACETAM 1,000MG in NACL 100ML PREMIX IV SCH (21:00)
[2025-03-10] MEDS: BLOOD SUGAR DIAGNOSTIC STRIP TEST SCH (21:19)
[2025-03-10] MEDS: HYDROCODONE/ACETAMINOPHEN 5/325MG TABLET PO PRN (22:01)
[2025-03-10] MEDS: ATORVASTATIN CALCIUM 40MG TABLET PO SCH (22:01)
[2025-03-10] MEDS: PANTOPRAZOLE SODIUM 40 MG/VIAL IV SCH (22:02)
[2025-03-10] MEDS: GABAPENTIN 100MG CAPSULE PO SCH (22:02)
[2025-03-10] MEDS: AMLODIPINE 5MG TABLET PO SCH (22:02)
[2025-03-10] MEDS: LAMOTRIGINE 100MG TABLET PO SCH (22:02)
[2025-03-10] MEDS: ENOXAPARIN 40MG/0.4ML SYR SUBCUT SCH (22:04)
[2025-03-10] MEDS: INSULIN LISPRO 100 UNITS/ML SUBCUT SCH (22:05)
[2025-03-10] MEDS: LEVETIRACETAM 1000MG PREMIX 100 ML IV SCH (22:38)
[2025-03-10] MEDS: MAGNESIUM 2 G PREMIX 50 ML IV SCH (23:42)
[2025-03-11] VITALS (7 sets, daily range): BP systolic 112–137; BP diastolic 46–78; PULSE 69–93; RESP 18–20; TEMP 36.1–36.6; O2SAT 94–99
[2025-03-11] MEDS: KCL 10MEQ/50ML PREMIX 50 ML IV ONE (02:26)
[2025-03-11 02:47] LABS: TROPONIN I HIGH SENSITIVITY < 4 ng/L (3.0-34)
[2025-03-11 08:26] LABS: PROTEIN TOTAL 5.8 g/dL (6.0-8.3)
[2025-03-11 08:27] LABS: TRIGLYCERIDE 45 mg/dL (0-150)
[2025-03-11 08:28] LABS: TROPONIN I HIGH SENSITIVITY < 4 ng/L (3.0-34)
[2025-03-11 08:29] LABS: CREATININE 0.7 mg/dL (0.6-1.0)
[2025-03-11 08:30] LABS: T4 FREE 1.04 ng/dL (0.89-1.76); UREA NITROGEN BLOOD 12 mg/dL (9-23)
[2025-03-11 08:31] LABS: ASPARTATE AMINOTRANSFERASE 35 IU/L (<34); LDL CHOLESTEROL 61 mg/dL (5-100)
[2025-03-11 08:32] LABS: BILIRUBIN DIRECT 0.2 mg/dL (<=3.0); BILIRUBIN TOTAL 0.7 mg/dL (0.1-1.0); PHOSPHORUS 3.8 mg/dL (2.5-4.9)
[2025-03-11 09:04] LABS: BASOPHILS % 0.7 % (0.0-2.0); EOSINOPHILS % 0.1 % (0.0-5.0); HEMATOCRIT. 41.5 % (36.0-48.0); HEMOGLOBIN. 14.0 g/dL (12.0-16.0); LYMPHOCYTES % 37.1 % (20.0-50.0); MONOCYTES % 12.8 % (2.0-8.0); NEUTROPHILS % 49.3 % (40.0-76.0); RED BLOOD CELL COUNT 4.41 mill/uL (4.2-5.4); RED CELL DISTRIBUTION WIDTH 12.5 % (11.6-14.6)
[2025-03-11] MEDS: SERTRALINE HCL 50MG TABLET PO SCH (09:06)
[2025-03-11] MEDS: FOLIC ACID 1MG TABLET PO SCH (09:06)
[2025-03-11] MEDS: THIAMINE HCL 100MG TABLET PO SCH (09:06)
[2025-03-11] MEDS: MULTIVITAMINS,THER W-MINERALS TABLET PO SCH (09:06)
[2025-03-11] MEDS: LOSARTAN 25 MG TABLET PO SCH (09:06)
[2025-03-11] MEDS: ASPIRIN 81MG TABLET PO SCH (09:08)
[2025-03-11] MEDS: INSULIN GLARGINE 100 UNITS/ML SUBCUT SCH (11:22)
[2025-03-11 12:15] LABS: CLARITY URINE CLOUDY (CLEAR); COLOR URINE YELLOW (YELLOW); GLUCOSE URINE 2+ (NEGATIVE); KETONES URINE NEGATIVE (NEGATIVE); LEUKOCYTE ESTERASE URINE 2+ (NEGATIVE); NITRITE URINE NEGATIVE (NEGATIVE); OCCULT BLOOD URINE NEGATIVE (NEGATIVE); PH URINE 6.0 (4.5-8.0); PROTEIN URINE TRACE (NEGATIVE); SPECIFIC GRAVITY URINE 1.027 (1.005-1.030); UROBILINOGEN URINE 1.0 E.U./dL (0.2-1.0)
[2025-03-11 12:32] LABS: BACTERIA URINE 1+; RBC URINE 0-2 /hpf (0-2); SQUAMOUS EPITHELIAL CELL URINE 3+ /lpf (RARE/1+); WBC URINE 50-100 /hpf (0-2); YEAST URINE NONE SEEN
[2025-03-11 12:52] LABS: *AMPHETAMINES SCREEN URINE NEGATIVE (NEGATIVE); *BARBITURATES SCREEN URINE NEGATIVE (NEGATIVE); *BENZODIAZEPINES SCREEN URINE NEGATIVE (NEGATIVE); *COCAINE SCREEN URINE NEGATIVE (NEGATIVE)
[2025-03-11 12:53] LABS: CANNABINOID URINE SCREEN NEGATIVE (NEGATIVE); ECSTASY MDMA SCREEN URINE NEGATIVE (NEGATIVE); METHADONE URINE SCREEN NEGATIVE (NEGATIVE); OPIATES URINE SCREEN PRESUMPTIVE POSITIVE (NEGATIVE); PHENCYCLIDINE URINE SCREEN NEGATIVE (NEGATIVE)
[2025-03-11 16:10] LABS: MEAN PLATELET VOLUME 12.2 fl (7.4-10.4); PLATELET 205 x1000/uL (130-400)
[2025-03-12] VITALS: BP 125/50; PULSE 94; RESP 20; TEMP 36.8; O2SAT 98
[2025-03-12] MEDS: ACETAMINOPHEN 325MG TABLET PO PRN (02:15)
[2025-03-12 04:00] VITALS: BP 119/58; PULSE 75; RESP 20; TEMP 36.3; O2SAT 98
[2025-03-12 06:34] LABS: BASOPHILS % 0.7 % (0.0-2.0); EOSINOPHILS % 0.1 % (0.0-5.0); HEMATOCRIT. 39.4 % (36.0-48.0); HEMOGLOBIN. 13.3 g/dL (12.0-16.0); LYMPHOCYTES % 34.9 % (20.0-50.0); MEAN PLATELET VOLUME 11.5 fl (7.4-10.4); MONOCYTES % 11.5 % (2.0-8.0); NEUTROPHILS % 52.8 % (40.0-76.0); PLATELET 234 x1000/uL (130-400); RED BLOOD CELL COUNT 4.24 mill/uL (4.2-5.4); RED CELL DISTRIBUTION WIDTH 12.4 % (11.6-14.6)
[2025-03-12 06:45] LABS: CREATININE 0.6 mg/dL (0.6-1.0); UREA NITROGEN BLOOD 13 mg/dL (9-23)
[2025-03-12 08:20] VITALS: BP 133/56; PULSE 96; RESP 18; TEMP 36.3; O2SAT 94
[2025-03-12] MEDS ORDERED: MAGNESIUM 2 G PREMIX 50 ML IV NR (08:30)
[2025-03-12 11:57] VITALS: BP 132/59; PULSE 90; RESP 18; TEMP 36.2; O2SAT 97
[2025-03-12] MEDS: LEVETIRACETAM 500MG TABLET PO SCH (14:28)
[2025-03-12] MEDS: MAGNESIUM OXIDE 400MG TABLET PO SCH (14:28)
[2025-03-12 16:12] VITALS: BP 118/70; PULSE 97; RESP 18; TEMP 36.3; O2SAT 98
[2025-03-12 20:00] VITALS: BP 123/64; PULSE 75; RESP 20; TEMP 36.6; O2SAT 97
[2025-03-12] MEDS ORDERED: LEVETIRACETAM 500MG TABLET PO SCH (21:00)
[2025-03-12] MEDS: LAMOTRIGINE 100MG TABLET PO SCH (22:36)
[2025-03-13] VITALS: BP 131/80; PULSE 93; TEMP 36.4; O2SAT 98
[2025-03-13 04:00] VITALS: BP 113/56; PULSE 91; RESP 20; TEMP 37.2; O2SAT 98
[2025-03-13 08:00] VITALS: BP 169/98; PULSE 100; RESP 18; TEMP 36.2; O2SAT 98
[2025-03-13 12:00] VITALS: BP 146/69; PULSE 84; RESP 20; TEMP 36.6; O2SAT 99
[2025-03-13 15:34] VITALS: BP 129/60; PULSE 90; RESP 18; TEMP 36.3; O2SAT 97
[2025-03-13 20:00] VITALS: BP 124/66; PULSE 89; RESP 18; TEMP 36.5; O2SAT 98
[2025-03-14] VITALS: BP 137/65; PULSE 92; RESP 20; TEMP 36.7; O2SAT 97
[2025-03-14 04:00] VITALS: BP_SYST 126; BP_SYST 132; BP_DIAS 49; BP_DIAS 59; PULSE 86; RESP 18; TEMP 36.4; O2SAT 95
[2025-03-14 06:37] LABS: BASOPHILS % 0.5 % (0.0-2.0); EOSINOPHILS % 0.1 % (0.0-5.0); HEMATOCRIT. 42.2 % (36.0-48.0); HEMOGLOBIN. 14.2 g/dL (12.0-16.0); LYMPHOCYTES % 35.7 % (20.0-50.0); MEAN PLATELET VOLUME 10.9 fl (7.4-10.4); MONOCYTES % 13.7 % (2.0-8.0); NEUTROPHILS % 50.0 % (40.0-76.0); PLATELET 231 x1000/uL (130-400); RED BLOOD CELL COUNT 4.53 mill/uL (4.2-5.4); RED CELL DISTRIBUTION WIDTH 12.5 % (11.6-14.6)
[2025-03-14 06:50] LABS: CREATININE 0.8 mg/dL (0.6-1.0); UREA NITROGEN BLOOD 12 mg/dL (9-23)
[2025-03-14 08:00] VITALS: BP 153/64; PULSE 98; RESP 16; TEMP 36.4; O2SAT 96
[2025-03-14] MEDS ORDERED: LAMO100T65 MT (09:37)
[2025-03-14] MEDS ORDERED: KEPP500 MT (09:37)
[2025-03-14 12:00] VITALS: BP 141/60; PULSE 92; RESP 18; TEMP 36.4; O2SAT 95
[2025-03-14 13:51] VITALS: BP 141/60; PULSE 92; RESP 18; TEMP 97.5
== END 2025-03-14 17:23 | disposition home health service (06) | DRG 100 ==
LOC: ER 11:29 → EDBEDREQ 18:04 → EDBEDREQTM 18:04 → 7WST 19:16
PROVIDERS: ADMIT Internal Medicine; ATTEND Internal Medicine
PROC: 4A00X4Z Measurement of Central Nervous Electrical Activity, External Approach (ICD-10-PCS; principal; 2025-03-13)
DX: G40.909 Epilepsy, unspecified, not intractable, without status epilepticus (principal); G92.8 Other toxic encephalopathy; E87.0 Hyperosmolality and hypernatremia; E11.9 Type 2 diabetes mellitus without complications; I10 Essential (primary) hypertension; E66.9 Obesity, unspecified; F32.9 Major depressive disorder, single episode, unspecified; E78.5 Hyperlipidemia, unspecified; R29.6 Repeated falls; G89.4 Chronic pain syndrome; M79.662 Pain in left lower leg; E83.42 Hypomagnesemia; F12.90 Cannabis use, unspecified, uncomplicated; Z79.4 Long term (current) use of insulin; Z79.82 Long term (current) use of aspirin; Z79.84 Long term (current) use of oral hypoglycemic drugs; Z86.73 Personal history of transient ischemic attack (TIA), and cerebral infarction without residual deficits; Z90.710 Acquired absence of both cervix and uterus; Z79.899 Other long term (current) drug therapy; Z68.38 Body mass index [BMI] 38.0-38.9, adult
CPT/HCPCS: 36415; 80048; 80061; 80076; 80305; 81003; 82542; 82550; 82962; 83036; 83735; 84100; 84439; 84443; 84484; 85025; 93005; 93970; 95816; 96374; 96376; 97162; 97165; 99285; J1650; J1815; J1953; J2470; J3475; J3480